=== PATIENT | male | born 1955 | race Caucasian/White ===

== ENCOUNTER 2023-04-24 15:37 | Emergency (ER) | payer OTHER ==
[~2023-04-24] VITALS: Ht 180.3 cm; Wt 80.5 kg
[2023-04-24] MEDS ORDERED: nyquil (15:48)
[2023-04-24 16:37] LABS: RSV AMPLIFICATION NEGATIVE (NEGATIVE)
[2023-04-24] MEDS ORDERED: IPRATROPIUM 0.5MG/ALBUTEROL 2.5MG INH SOL UD 3ML (DUONEB) NEB ONE (17:50)
[2023-04-24] MEDS ORDERED: PROA1AER2 INH (17:54)
[2023-04-24 18:10] VITALS: BP 103/63; TEMP 96.8; O2SAT 96
== END 2023-04-24 18:37 | disposition home or self-care (01) ==
LOC: M ED 15:37
DX: J09.X2 Influenza due to identified novel influenza A virus with other respiratory manifestations (principal); Z87.891 Personal history of nicotine dependence; Z88.0 Allergy status to penicillin